=== PATIENT | male | born 2000 | race Caucasian/White ===

== ENCOUNTER 2018-03-31 14:16 | Emergency (ER) | payer BC, OTHER ==
[~2018-03-31] VITALS: Ht 172.7 cm; Wt 65.0 kg
[2018-03-31 14:23] VITALS: TEMP 36.6; Ht 172.7 cm; Wt 65.0 kg
[2018-03-31] MEDS ORDERED: SODIUM CHLORIDE 0.9% 1000ML 1,000 ML IV STA (14:31)
[2018-03-31] MEDS ORDERED: ACETAMINOPHEN 500 MG TAB PO STA (14:43)
[2018-03-31] MEDS ORDERED: LIDOCAINE/EPINEPH/TETRACAINE 1 EA SYR EXT STA (14:43)
[2018-03-31] MEDS ORDERED: LIDOCAINE 1% BUFFERED INJ 5 ML VIAL INFIL ONE (14:45)
[2018-03-31 14:52] LABS: INR 1.1 (0.9-1.1); PTT PATIENT 22.6 SECONDS (21.0-31.0)
[2018-03-31 14:53] LABS: BASO % 0.4 %; BASO ABS # 0.04 K/uL (0-0.2); EOS % 1.1 %; HEMATOCRIT 45.6 % (42-52); HEMOGLOBIN 16.1 g/dL (14.0-18.0); IG# 0.05 K/uL (0.00-0.02); LYMPH % 25.2 %; LYMPH ABS # 2.31 K/uL (1.2-3.4); MEAN CELL VOLUME 89.6 fL (80-100); MEAN CORPUSCULAR HEMOGLOBIN 31.6 pg (25-34); MEAN CORPUSCULAR HGB CONC 35.3 g/dl (32-36); MEAN PLATELET VOLUME 9.9 fL (7.4-10.4); MONO % 8.1 %; MONO ABS # 0.74 K/uL (0.11-0.59); NEUT % 64.7 %; NEUT ABS # 5.93 K/uL (1.4-6.5); PLATELET COUNT 314 K/uL (130-400); RED CELL DISTRIBUTION WIDTH CV 13.6 % (11.5-14.5); RED CELL DISTRIBUTION WIDTH SD 44.6 fL (36.4-46.3); WHITE BLOOD COUNT 9.17 K/uL (4.8-10.8)
[2018-03-31 15:00] LABS: BLOOD UREA NITROGEN 10 mg/dl (7-18); CALCIUM 8.7 mg/dl (8.5-10.1); CARBON DIOXIDE 18 mmol/L (21-32); CREATININE 1.24 mg/dl (0.60-1.40); GLUCOSE 140 mg/dl (70-99); POTASSIUM 3.7 mmol/L (3.5-5.1); SODIUM 137 mmol/L (136-145)
[2018-03-31 15:10] VITALS: O2SAT 100
[2018-03-31 15:11] LABS: PHOSPHORUS 2.7 mg/dl (2.5-4.9)
--- NOTE | 2018-03-31 15:28 | DIAGNOSTIC IMAGING REPORT ---
HEAD WITHOUT CONTRAST (CT) CT DOSE: 537.48 mGy.cm HISTORY: Mental status change syncope, frontal contusion, laceration TECHNIQUE: Multiaxial CT images of the head were performed without the use of intravenous contrast. A dose lowering technique was utilized adhering to the principles of ALARA. Comparison: None. Findings: The paranasal sinuses and mastoid air cells are clear. The calvarium and skull base are intact. The ventricles and sulci are within normal limits. There is no mass, hematoma, midline shift, or acute infarct. Impression: No acute intracranial abnormality. The above report was generated using voice recognition software. It may contain grammatical, syntax or spelling errors. Electronically signed by: Dwayne Prieto M.D. 03/31/2018 3:27 PM Dictated Date/Time: 03/31/2018 3:26 PM
[2018-03-31] MEDS ORDERED: NASAL DECONGESTANT NAE (15:51)
[2018-03-31] MEDS ORDERED: NIAC500T11 PO (15:51)
[2018-03-31] MEDS ORDERED: PSYL0.524 PO (15:51)
[2018-03-31] MEDS ORDERED: LISD30CA4 PO (15:51)
[2018-03-31] MEDS ORDERED: MAGN400T6 PO (15:51)
[2018-03-31] MEDS ORDERED: B-CO1CAP17 PO (15:51)
[2018-03-31] MEDS ORDERED: OPTIRAY 320 IV PRN (16:15)
--- NOTE | 2018-03-31 16:38 | DIAGNOSTIC IMAGING REPORT ---
CT ANGIOGRAM OF THE CHEST CLINICAL HISTORY: Elevated d-dimer. COMPARISON STUDY: No priors. TECHNIQUE: Following the IV administration of 94 cc of Optiray 320, CT angiogram of the chest was performed from the upper abdomen to the thoracic inlet utilizing the pulmonary embolus protocol. Images are reviewed in the axial, sagittal, and coronal planes. 3-D MIPS images are created and assessed. IV contrast was administered without complication. A dose lowering technique was utilized adhering to the principles of ALARA. CT DOSE: 330.12 mGycm FINDINGS: Thyroid: Imaged portions of the thyroid gland are normal in size and attenuation. Thoracic aorta: The thoracic aorta is normal in caliber and demonstrates standard 3-vessel arch anatomy. No dissection is seen. Pulmonary vasculature: The pulmonary trunk is normal in caliber. There are no filling defects identified in main, lobar, or segmental pulmonary branches to suggest pulmonary embolus. Heart: The heart is normal in size and configuration, and without pericardial effusion. Lungs and pleural spaces: The lungs and pleural spaces are clear. Trachea and central airways are patent. Mediastinum: There is no mediastinal lymphadenopathy. Netta: Clear. Axillae: There is no axillary lymphadenopathy. Upper abdomen: Partially visualized upper abdominal viscera is within normal limits. Skeletal structures: No lytic or blastic bony lesions are seen. IMPRESSION: 1. There is no evidence of pulmonary embolus in the main, lobar, or segmental pulmonary arteries. 2. The lungs are clear. Electronically signed by: Patrice Arellano M.D. 03/31/2018 4:36 PM Dictated Date/Time: 03/31/2018 4:25 PM
--- NOTE | 2018-03-31 18:03 | EMERGENCY ROOM VISIT NOTE ---
History Report prepared by Pamela: Jem Simmons Under the Supervision of: Dr. Ruel Ayers M.D. First contact with patient: 14:31 Chief Complaint: SEIZURE Stated Complaint: SEIZURE Nursing Triage Summary: PT HERE WITH WITNESSED 20 SECOND SEIZURE. PT WAS STUDYING WITH A FRIEND. FRIEND STATES PT BEGAN MAKING NOISES THEN WAS SEIZING. NO HX OF SEIZURES. PT IS PRESCRIBED VIVANCE BUT HAS BEEN TAKING MORE. PT NOT INCONTINENT. PT FELL FORWARD AND STRUCK HIS HEAD, LAC ON MID FOREHEAD AREA. PT ALSO HAS C COLLAR IN PLACE BY EMS. History of Present Illness The patient is a 17 year old male who presents to the Emergency Room by EMS with complaints of an episode of generalized seizure-like activity occurring just prior to arrival. He states that he was studying for final exams at [employer] and was staring at his computer screen when he blacked out. The patient states that he was reading his notes, and denies any flashing lights from his computer screen. He states that he then woke up on the ground with blood around him. He struck his forehead during the fall. He was told by his friend that he was shaking on the ground. The patient states that he felt really lightheaded about 15 seconds prior to the episode. He currently complains of a headache. He states that he has gotten normal sleep earlier this week, but only had five hours last night. The patient is on Vyvanse, and notes that he has been taking it more than normal recently due to his final exams. He has no known history of seizures. He has not used caffeine or energy drinks this week. Pt denies fevers , chills, diaphoresis, visual changes, neck pain, chest pain, breathing difficulties, nausea, vomiting, abdominal pain, back pain, melena, hematochezia , urinary symptoms, numbness, weakness, lymphadenopathy, rash, or other complaints. Source of History: patient Onset: shortly prior to arrival Position: other (generalized) Quality: other (seizure-like activity) Timing: other (episode) Associated Symptoms: + LOC, + headache Note: Positive: lightheadedness 15 seconds prior to episode. Review of Systems See HPI for pertinent positives and negatives. A total of ten systems were reviewed and were otherwise negative. Past Medical & Surgical Medical Problems: (1) No Known Active Medical Problems Family History No pertinent family history stated. Social History Smoking Status: Never Smoker Occupation Status: [employer] student Current/Historical Medications Scheduled Lisdexamfetamine Dimesylate (Vyvanse), 30 MG PO DAILY Magnesium Oxide (Mag-Ox), 1 TAB PO DAILY Niacin (Niacin), 500 MG PO BID Psyllium (Metamucil), 1 CAP PO TID Vitamin B Cmplx/Vitc/Folic Ac (Nephrocaps), 1 CAP PO DAILY [Nasal Decongestant], 2 SPRAYS SORAYA DAILY Allergies Coded Allergies: Dust (Verified Allergy, Mild, STUFFY HEAD/NOSE, 03/31/18) Physical Exam Vital Signs Date Time Temp Pulse Resp B/P (MAP) Pulse Ox O2 Delivery O2 Flow Rate FiO2 03/31/18 18:08 78 18 132/71 97 Room Air 03/31/18 17:15 80 18 131/74 98 Room Air 03/31/18 15:40 88 15 128/66 100 Room Air 03/31/18 15:10 100 Room Air 03/31/18 15:10 100 Room Air 03/31/18 14:24 125 03/31/18 14:23 36.6 125 16 119/67 99 Room Air Physical Exam GENERAL: Awake, alert, well appearing, no distress HENT: Normocephalic. Y shaped laceration to the forehead with contusion. TM's normal. Oropharynx unremarkable except for a small bite stephanie on the tip of the tongue right side. EYES: PERRL. EOMI. Normal conjunctiva. Sclera non-icteric. NECK: Supple. No nuchal rigidity. No bruit. No posterior neck tenderness. Full ROM. Cleared via NEXUS criteria. RESPIRATORY: Breath sounds equal. No wheezes. No rhonchi. Normal respiratory effort. CARDIAC: Normal rate. Regular rhythm. No murmurs. No rubs. No JVD. GI: Soft, non distended. No tenderness to palpation. No rebound or guarding. No masses. RECTAL: Deferred. MUSCULOSKELETAL: Unremarkable. No edema. No discoloration. Gross motor strength symmetric. NEURO: Cranial nerves 2-12 grossly intact. Normal sensorium. No sensory or motor deficits noted. Speech normal. No pronator drift. Normal heel to carbajal. SKIN: No rash or jaundice noted. LYMPH: No adenopathy. Medical Decision & Procedures ER Provider Diagnostic Interpretation: Radiology results as stated below per my review and radiologist interpretation: HEAD WITHOUT CONTRAST (CT) Findings: The paranasal sinuses and mastoid air cells are clear. The calvarium and skull base are intact. The ventricles and sulci are within normal limits. There is no mass, hematoma, midline shift, or acute infarct. Impression: No acute intracranial abnormality. The above report was generated using voice recognition software. It may contain grammatical, syntax or spelling errors. Electronically signed by: Stephanie Prieto M.D. 03/31/2018 3:[address] ANGIOGRAM OF THE CHEST FINDINGS: Thyroid: Imaged portions of the thyroid gland are normal in size and attenuation. Thoracic aorta: The thoracic aorta is normal in caliber and demonstrates standard 3-vessel arch anatomy. No dissection is seen. Pulmonary vasculature: The pulmonary trunk is normal in caliber. There are no filling defects identified in main, lobar, or segmental pulmonary branches to suggest pulmonary embolus. Heart: The heart is normal in size and configuration, and without pericardial effusion. Lungs and pleural spaces: The lungs and pleural spaces are clear. Trachea and central airways are patent. Mediastinum: There is no mediastinal lymphadenopathy. Netta: Clear. Axillae: There is no axillary lymphadenopathy. Upper abdomen: Partially visualized upper abdominal viscera is within normal limits. Skeletal structures: No lytic or blastic bony lesions are seen. IMPRESSION: 1. There is no evidence of pulmonary embolus in the main, lobar, or segmental pulmonary arteries. 2. The lungs are clear. Electronically signed by: Patrice Arellano M.D. 03/31/2018 4:36 PM Laboratory Results 03/31/18 14:20 Red Blood Count 5.09, Mean Corpuscular Volume 89.6, Mean Corpuscular Hemoglobin 31.6, Mean Corpuscular Hemoglobin Concent 35.3, Mean Platelet Volume 9.9, Neutrophils (%) (Auto) 64.7, Lymphocytes (%) (Auto) 25.2, Monocytes (%) (Auto) 8.1, Eosinophils (%) (Auto) 1.1, Basophils (%) (Auto) 0.4, Neutrophils # (Auto) 5.93, Lymphocytes # (Auto) 2.31, Monocytes # (Auto) 0.74, Eosinophils # (Auto) 0.10, Basophils # (Auto) 0.04 03/31/18 14:20 Test 03/31/18 14:20 White Blood Count 9.17 K/uL (4.8-10.8) Red Blood Count 5.09 M/uL (4.7-6.1) Hemoglobin 16.1 g/dL (14.0-18.0) Hematocrit 45.6 % (42-52) Mean Corpuscular Volume 89.6 fL (80-100) Mean Corpuscular Hemoglobin 31.6 pg (25-34) Mean Corpuscular Hemoglobin Concent 35.3 g/dl (32-36) Platelet Count 314 K/uL (130-400) Mean Platelet Volume 9.9 fL (7.4-10.4) Neutrophils (%) (Auto) 64.7 % Lymphocytes (%) (Auto) 25.2 % Monocytes (%) (Auto) 8.1 % Eosinophils (%) (Auto) 1.1 % Basophils (%) (Auto) 0.4 % Neutrophils # (Auto) 5.93 K/uL (1.4-6.5) Lymphocytes # (Auto) 2.31 K/uL (1.2-3.4) Monocytes # (Auto) 0.74 K/uL (0.11-0.59) Eosinophils # (Auto) 0.10 K/uL (0-0.5) Basophils # (Auto) 0.04 K/uL (0-0.2) RDW Standard Deviation 44.6 fL (36.4-46.3) RDW Coefficient of Variation 13.6 % (11.5-14.5) Immature Granulocyte % (Auto) 0.5 % Immature Granulocyte # (Auto) 0.05 K/uL (0.00-0.02) Prothrombin Time 11.5 SECONDS (9.0-12.0) Prothromb Time International Ratio 1.1 (0.9-1.1) Activated Partial Thromboplast Time 22.6 SECONDS (21.0-31.0) Partial Thromboplastin Ratio 0.9 D-Dimer 1200 ug/L FEU (0-500) Anion Gap 15.0 mmol/L (3-11) Est Creatinine Clear Calc Drug Dose 88.1 ml/min Estimated GFR () 97.1 Estimated GFR (Non- 83.8 BUN/Creatinine Ratio 7.7 (10-20) Calcium Level 8.7 mg/dl (8.5-10.1) Phosphorus Level 2.7 mg/dl (2.5-4.9) Magnesium Level 2.6 mg/dl (1.8-2.4) Troponin I < 0.015 ng/ml (0-0.045) Thyroid Stimulating Hormone (TSH) 1.050 uIu/ml (0.300-4.500) Laboratory results reviewed by me Medications Administered Medications (Trade) Dose Ordered Sig/Kishore Route Start Time Stop Time Status Last Admin Dose Admin Sodium Chloride 1,000 ml @ 999 mls/hr Q1H1M STAT IV 03/31/18 14:31 03/31/18 15:31 DC 03/31/18 14:31 999 MLS/HR Tetracaine/ Epinephrine/ Lidocaine (L.e.t. Gel 4%/ 1:100/0.5%) 1 ea UD STAT EXT 03/31/18 14:43 03/31/18 14:44 DC 03/31/18 14:43 1 EA Acetaminophen (Tylenol Tab) 1,000 mg NOW STAT PO 03/31/18 14:43 03/31/18 14:44 DC 03/31/18 15:08 1,000 MG Procedure Location: forehead. Total length: 4 cm (Y shaped) Complexity: simple Verbal consent was obtained after the risks and benefits were explained, including but not limited to bleeding, scarring, infection, pain, and bone/joint /nerve damage. At this time, the risks of the procedure are less than the risks of NOT performing the procedure. A time out was taken and the correct patient and site identified. The skin was prepped with betadine. The target area was anesthetized with L.E.T. Gel. Copious irrigation was performed using saline. The skin was re-prepped with betadine and a sterile field set. The wound was explored for foreign bodies and none found. Examination revealed no injury to deep structures such as tendons, bone, or significant blood vessels. Debridement was not performed. The wound edges were approximated using 9, 6-0 simple interrupted nylon sutures. Hemostasis and excellent approximation was achieved. Antibacterial ointment and a sterile dressing applied. Detailed wound care instructions and signs and symptoms of infection reviewed with the patient. No complications and the patient tolerated the procedure well. ECG Per My Interpretation Indication: other (seizure) Rate (beats per minute): 127 Rhythm: sinus tachycardia Findings: other (No PVCs. Normal intervals. Inferior T-wave abnormality. ) ED Course 1436: The patient was evaluated in room C6. A complete history and physical exam was performed. 1431: Ordered Sodium Chloride 1000 ml @ 999 mls/hr IV. 1443: Ordered Tylenol Tab 1000 mg PO, L.E.T. Gel 4%/1:100/0.5% EXT. 1445: Ordered Buffered Lidocaine 1% Inj 20 mL INFIL. 1555: I updated the patient's case. He is going for CT. 1640: I conducted the laceration repair. See the procedure note for details. 1726: I spoke with the patient's father over the phone. I updated them on the patient's case. Review the diagnostics and ED course. Also outlined the need for follow-up. He is likely coming to stay with him this evening as he was planning to take him home after his finals tomorrow. 1815: Discharge instructions outlined. The patient is ready for discharge. Medical Decision Patient placed in seizure precautions immediately upon arrival. Nursing notes reviewed and agree them. The patient's history was concerning for a possible seizure versus syncope. Differential diagnosis: Etiologies such as seizure, syncope, concussion, soft tissue injury, skull fracture infection, hypoglycemia, electrolyte abnormalities, cardiac sources, pulmonary embolus, intracerebral event, trauma, toxicologic, neurologic, as well as others were entertained. Physical examination: As above. The patient had a benign neck examination. Cervical collar cleared clinically. He has a laceration that will require repair. No incontinence but he did have a bite wound on the tongue. ER treatment provided: IV saline hydration Oral Tylenol. On reassessment the patient felt better. Let gel Laceration repair Bandaging Diagnostics interpretation by me: ECG: Mild tachycardia as noted. No interval prolongation. Nonspecific ST. The labs revealed an unremarkable CBC and chemistry panel. Cardiac troponin negative. D-dimer elevated. Imaging studies: CAT scans as above. The patient presented with a seizure-like episode that occurred. He had a break of his normal sleep-wake cycle. He was taking a stimulant. This is a classic set up for a seizure. Seizure precautions were discussed. He did suffer a forehead contusion, concussion and small laceration. This was repaired as above. This went very well. He did very well in the emergency department. I see no evidence of intracranial bleeding, skull fracture, myocarditis or interval prolongation such that would cause a dysrhythmia. He has no evidence of pulmonary embolism. After observation in the above treatment he did very well and felt well. Given the historical facts I would lean more towards a seizure for this episode and therefore neurology follow-up and outpatient EEG and MRI are necessary. The patient will be leaving town tomorrow. I did discuss all of this with his father as well as the patient. He will have a family doctor follow-up. They can coordinate an outpatient EEG and MRI. They can also coordinate a neurology follow-up. If additional information is found and a cardiology follow-up is felt to be necessary, this would not be unreasonable and can be arranged through his primary office. The patient feels comfortable with the plan as does his father. If he worsens in any way he will be back. By the evaluation outlined above emergent etiologies such as infection, hypoglycemia, electrolyte abnormalities, cardiac sources, intracerebral event, toxicologic, neurologic,as well as others were deemed relatively unlikely. The patient was counseled not to drive until cleared in follow-up. The appropriate courtesy driver's license form was completed and submitted. The patient and father were informed about the findings as listed above. All questions were answered and they were pleased with the treatment. Return instructions were outlined and the patient was discharged in stable condition. Outpatient prescription management: None Referral: The patient was referred back to his primary care physician for follow-up for a recheck of the current condition. Medication Reconcilliation Current Medication List: was personally reviewed by me Blood Pressure Screening Patient's blood pressure: Normal blood pressure Blood pressure disposition: Did not require urgent referral Impression Primary Impression: Seizure-like activity Additional Impressions: Forehead laceration Concussion Scribe Attestation The scribe's documentation has been prepared under my direction and personally reviewed by me in its entirety. I confirm that the note above accurately reflects all work, treatment, procedures, and medical decision making performed by me. Departure Information Dispostion Home / Self-Care Patient Instructions My [facility] Additional Instructions Bacitracin to wounds once daily. Use a non-stick dressing such as a large band-aid. Change the dressings once a day. Tylenol as needed for pain. Allow your wounds to air dry several hours per day when you are resting, but it is a good idea to keep them covered while sleeping to prevent irritation and the sheets sticking to the wound. Apply direct pressure for any bleeding. Return to the ER immediately for spreading redness, fevers, pus-like drainage, severe pain, or as needed. Return to the ER in 5-6 days for suture removal, or sooner as needed. Stop and stay away from ALL physical activity until you are symptom free from: Headaches Balance problems Feeling "dinged" Poor concentration Drowsy Fatigued Rest and avoid strenuous activities for the next few days. Get 8-10 hours of sleep per night. Limit activities that involve significant concentration and attention during this time to speed your recovery. This includes studying, attending school, playing video games, and heavy reading. Your brain needs to rest. Eat right and eat often. Now is the time to feed your brain. Well balanced diets that avoid high sugar foods, sodas, caffeine, etc. are better for your brain. NO ALCOHOL OR DRUGS! Avoid stimulants like caffeine, red bull, mountain dew, "energy" drinks, etc. Tylenol(acetaminophen) may be used for headaches. Use 1000mg every six hours as needed. Avoid using more than 4000mg in a 24 hour period. Avoid anti-inflammatories such as aspirin, ibuprofen, Alleve, naprosyn, Motrin, or Advil as these can interfere with blood clotting and lead to bleeding within the brain after a traumatic injury. FOLLOW UP INSTRUCTIONS: Follow-up with your primary physician when you get home. It is recommended to have a outpatient EEG and MRI performed and then have a neurology follow-up. No driving until cleared by neurology follow-up Problems could arise over the next 24 to 48 hours. You should not be left alone and MUST go to the hospital immediately if you: -Have a headache that suddenly gets worse. -Are very drowsy or cannot be woken up from sleep. -Can't recognize people or places. -Have repeated vomiting, chest pain, difficulty breathing, or pass out. -Behave unusually, seemed confused, or start acting irritable. -Have a seizure (arms and legs start jerking uncontrollably). -Have weak or numb arms or legs. -Are unsteady on your feet -Experience slurred speech or difficulty speaking. Call back to the hospital tomorrow to talk with medical records and obtain your visit information for follow-up with your primary physician and neurologist. Problem Qualifiers
[2018-03-31 18:08] VITALS: BP 132/71; PULSE 78; O2SAT 97
== END 2018-03-31 18:20 | disposition home or self-care (01) ==
LOC: EDBD 14:16 → C.EDC 14:18 → EDBD 14:18 → C.EDC 18:20
DX: S06.0X1A Concussion with loss of consciousness of 30 minutes or less, initial encounter (principal); S01.81XA Laceration without foreign body of other part of head, initial encounter; R56.9 Unspecified convulsions; W19.XXXA Unspecified fall, initial encounter; Y93.89 Activity, other specified; Y92.89 Other specified places as the place of occurrence of the external cause; Z79.899 Other long term (current) drug therapy; Z91.048 Other nonmedicinal substance allergy status